=== PATIENT | male | born 1950 | race Caucasian/White ===

== ENCOUNTER 2020-07-16 17:50 | Inpatient (IN) ==
[2020-07-16] MEDS ORDERED: MORPHINE 4 MG/1 ML VIAL IV STA (18:47)
[2020-07-16] MEDS ORDERED: ONDANSETRON 4 MG/2 ML VIAL IV ONE (18:47)
[2020-07-16] MEDS ORDERED: SODIUM CHLORIDE 0.9% 1,000 ML IV STA (18:47)
[2020-07-16 19:04] LABS: Basophils # 0.1 10*3/uL (0.0-0.2); Basophils % 0.4 % (0.0-0.8); Eosinophils # 0.1 10*3/uL (0.0-0.87); Eosinophils % 0.4 % (0.00-10.9); Hematocrit 48.3 VOL% (42.0-52.0); Immature Granulocytes % 0.6 %; Immature Granulocytes Absolute 0.08 #; Lymphocytes # 1.1 10*3/uL (1.4-4.0); Lymphocytes % 7.8 % (21.2-54.2); Mean Corpuscular HGB Conc 35.2 GM/DL (32-36); Mean Corpuscular Volume 81.7 FL (87-102); Mean Platelet Volume 9.7 FL (9.6-12.0); Monocytes % 6.9 % (1.7-12.7); Neutrophils % 83.9 % (38.7-73.9); Platelet Count 188 T/CUMM (130-400); Red Blood Count 5.91 MC/CUMM (3.8-5.5); Red Cell Distribution Width 12.3 % (9.3-17.3); White Blood Count 13.8 T/CUMM (4-12)
[2020-07-16 19:17] LABS: Albumin 3.6 G/DL (3.4-5.0); Bilirubin,Total 2.1 MG/DL (0.2-1.0); Calcium 8.9 MG/DL (8.5-10.1); Osmolality,Calculated 268.1 MOS/KG (273-304); Total Protein 7.3 G/DL (6.4-8.3)
[2020-07-16 20:01] LABS: Apearance,Urine CLEAR (Clear); Bacteria,Urine Occasional /HPF (Few); Bilirubin,Urine Negative (Negative); Blood, Urine Negative (Negative); Glucose,Urine (UA) Negative (Negative); Ketones,Urine Negative (Negative); Mucus,Urine Occasional /LPF (Occasional); Nitrite,Urine Negative (Negative); Protein,Urine Negative; Urine Color Yellow (Yellow); Urine Specific Gravity 1.006 (1.001-1.035); Urine Urobilinogen < 2.0 EU/DL (0.2-1.0)
[2020-07-16] MEDS ORDERED: metroNIDAZOLE INJ 500 MG in PREMIX 1 EACH IV STA (20:17)
[2020-07-16] MEDS ORDERED: CIPROFLOXACIN INJ 400 MG in PREMIX 1 EACH IV STA (20:18)
[2020-07-16] MEDS ORDERED: GLUCAGON 1 MG VIAL IM PRN (20:56)
[2020-07-16] MEDS ORDERED: PROMETHAZINE 25 MG/1 ML VIAL IM PRN (20:56)
[2020-07-16] MEDS ORDERED: hydrALAZINE 20 MG/1 ML VIAL IV PRN (20:56)
[2020-07-16] MEDS ORDERED: NICOTINE 21 MG/24 HR PATCH TRANSDERM PRN (20:56)
[2020-07-16] MEDS ORDERED: DEXTROSE 50% 25 GM/50 ML VIAL IV PRN (20:56)
[2020-07-16] MEDS: SODIUM CHLORIDE 0.9% 1,000 ML IV SCH (22:29)
[2020-07-16] MEDS: MORPHINE 4 MG/1 ML VIAL IV PRN (22:29)
[2020-07-16] MEDS: ONDANSETRON 4 MG/2 ML VIAL IV PRN (22:29)
[2020-07-17] MEDS: MORPHINE 4 MG/1 ML VIAL IV PRN ×2 (04:12→20:49)
[2020-07-17] MEDS: ONDANSETRON 4 MG/2 ML VIAL IV PRN (04:13)
[2020-07-17] MEDS: SODIUM CHLORIDE 0.9% 1,000 ML IV SCH ×2 (06:17→16:16)
[2020-07-17 06:18] LABS: Basophils % 0.3 % (0.0-0.8); Eosinophils % 0.1 % (0.00-10.9); Hematocrit 44.7 VOL% (42.0-52.0); Hemoglobin 15.4 GM/DL (14.0-18.0); Immature Granulocytes % 0.9 %; Immature Granulocytes Absolute 0.12 #; Lymphocytes % 7.5 % (21.2-54.2); Mean Corpuscular HGB Conc 34.5 GM/DL (32-36); Mean Corpuscular Volume 83.7 FL (87-102); Mean Platelet Volume 9.8 FL (9.6-12.0); Monocytes % 8.5 % (1.7-12.7); Neutrophils % 82.7 % (38.7-73.9); Platelet Count 167 T/CUMM (130-400); Red Blood Count 5.34 MC/CUMM (3.8-5.5); Red Cell Distribution Width 12.6 % (9.3-17.3); White Blood Count 13.8 T/CUMM (4-12)
[2020-07-17 06:30] LABS: Bilirubin,Total 3.6 MG/DL (0.2-1.0); Calcium 8.1 MG/DL (8.5-10.1); Osmolality,Calculated 272.8 MOS/KG (273-304); Total Protein 6.3 G/DL (6.4-8.3)
[2020-07-17] MEDS: CIPROFLOXACIN INJ 400 MG in PREMIX 1 EACH IV SCH ×2 (08:55→20:50)
[2020-07-17] MEDS ORDERED: metroNIDAZOLE INJ 500 MG in PREMIX 1 EACH IV SCH (09:00)
[2020-07-17] MEDS ORDERED: TAMSULOSIN 0.4 MG CAPSULE PO SCH (09:00)
[2020-07-17] MEDS ORDERED: PHENYLEPH/MINERAL OIL/PETROLAT 57 GM TUBE TOP PRN (11:14)
[2020-07-17] MEDS: metroNIDAZOLE INJ 500 MG in PREMIX 1 EACH IV SCH (17:56)
[2020-07-17] MEDS: TAMSULOSIN 0.4 MG CAPSULE PO SCH (20:50)
[2020-07-18] MEDS: MORPHINE 4 MG/1 ML VIAL IV PRN ×3 (00:16→20:54)
[2020-07-18] MEDS: metroNIDAZOLE INJ 500 MG in PREMIX 1 EACH IV SCH ×3 (01:50→16:31)
[2020-07-18] MEDS: SODIUM CHLORIDE 0.9% 1,000 ML IV SCH ×3 (01:51→16:58)
[2020-07-18 05:30] LABS: Basophils % 0.4 % (0.0-0.8); Eosinophils # 0.1 10*3/uL (0.0-0.87); Eosinophils % 1.1 % (0.00-10.9); Hematocrit 41.9 VOL% (42.0-52.0); Hemoglobin 14.2 GM/DL (14.0-18.0); Immature Granulocytes % 1.1 %; Lymphocytes # 1.3 10*3/uL (1.4-4.0); Lymphocytes % 13.9 % (21.2-54.2); Mean Corpuscular HGB Conc 33.9 GM/DL (32-36); Mean Corpuscular Volume 83.8 FL (87-102); Mean Platelet Volume 9.9 FL (9.6-12.0); Monocytes % 8.3 % (1.7-12.7); Neutrophils % 75.2 % (38.7-73.9); Platelet Count 141 T/CUMM (130-400); Red Cell Distribution Width 12.6 % (9.3-17.3); White Blood Count 9.5 T/CUMM (4-12)
[2020-07-18 05:49] LABS: Albumin 2.5 G/DL (3.4-5.0); Bilirubin,Direct 0.36 MG/DL (0.0-0.20); Bilirubin,Total 2.7 MG/DL (0.2-1.0); Calcium 7.9 MG/DL (8.5-10.1); Osmolality,Calculated 274.7 MOS/KG (273-304); Total Protein 5.8 G/DL (6.4-8.3)
[2020-07-18] MEDS: CIPROFLOXACIN INJ 400 MG in PREMIX 1 EACH IV SCH ×2 (08:31→20:55)
[2020-07-18] MEDS: TAMSULOSIN 0.4 MG CAPSULE PO SCH ×2 (08:31→20:56)
[2020-07-18] MEDS: FINASTERIDE 5 MG TABLET PO SCH (08:31)
[2020-07-18] MEDS: POLYETHYLENE GLYCOL POWDER 17 GM PACK PO SCH (12:35)
[2020-07-18] MEDS: HYDROCORTISONE 25 MG SUPP RECTAL SCH ×2 (14:25→20:57)
[2020-07-18] MEDS: DICYCLOMINE 10 MG CAPSULE PO SCH (20:56)
[2020-07-19] MEDS: SODIUM CHLORIDE 0.9% 1,000 ML IV SCH ×3 (00:37→20:32)
[2020-07-19] MEDS: metroNIDAZOLE INJ 500 MG in PREMIX 1 EACH IV SCH ×3 (00:37→16:32)
[2020-07-19] MEDS: MORPHINE 4 MG/1 ML VIAL IV PRN ×2 (00:42→04:25)
[2020-07-19 06:02] LABS: Basophils % 0.5 % (0.0-0.8); Eosinophils # 0.1 10*3/uL (0.0-0.87); Eosinophils % 1.4 % (0.00-10.9); Hematocrit 41.5 VOL% (42.0-52.0); Immature Granulocytes % 1.3 %; Lymphocytes % 12.5 % (21.2-54.2); Mean Corpuscular HGB Conc 33.7 GM/DL (32-36); Mean Platelet Volume 10.1 FL (9.6-12.0); Monocytes % 7.4 % (1.7-12.7); Neutrophils % 76.9 % (38.7-73.9); Platelet Count 146 T/CUMM (130-400); Red Blood Count 4.94 MC/CUMM (3.8-5.5); Red Cell Distribution Width 12.5 % (9.3-17.3); White Blood Count 7.6 T/CUMM (4-12)
[2020-07-19 06:26] LABS: Albumin 2.4 G/DL (3.4-5.0); Bilirubin,Direct 0.32 MG/DL (0.0-0.20); Bilirubin,Total 1.8 MG/DL (0.2-1.0); Calcium 8.4 MG/DL (8.5-10.1); Osmolality,Calculated 276.5 MOS/KG (273-304)
[2020-07-19] MEDS: TAMSULOSIN 0.4 MG CAPSULE PO SCH ×2 (08:59→20:46)
[2020-07-19] MEDS: POLYETHYLENE GLYCOL POWDER 17 GM PACK PO SCH (08:59)
[2020-07-19] MEDS: DICYCLOMINE 10 MG CAPSULE PO SCH (08:59)
[2020-07-19] MEDS: FINASTERIDE 5 MG TABLET PO SCH (08:59)
[2020-07-19] MEDS: CIPROFLOXACIN INJ 400 MG in PREMIX 1 EACH IV SCH ×2 (09:00→20:46)
[2020-07-19] MEDS: HYDROCORTISONE 25 MG SUPP RECTAL SCH ×3 (10:10→20:46)
[2020-07-19] MEDS ORDERED: DICYCLOMINE 10 MG CAPSULE PO PRN (10:45)
[2020-07-20] MEDS: metroNIDAZOLE INJ 500 MG in PREMIX 1 EACH IV SCH ×3 (01:26→17:08)
[2020-07-20 04:56] LABS: Basophils % 0.6 % (0.0-0.8); Eosinophils # 0.1 10*3/uL (0.0-0.87); Eosinophils % 1.9 % (0.00-10.9); Hematocrit 43.6 VOL% (42.0-52.0); Hemoglobin 14.7 GM/DL (14.0-18.0); Immature Granulocytes Absolute 0.07 #; Lymphocytes # 1.1 10*3/uL (1.4-4.0); Lymphocytes % 16.4 % (21.2-54.2); Mean Corpuscular HGB Conc 33.7 GM/DL (32-36); Mean Corpuscular Volume 85.5 FL (87-102); Mean Platelet Volume 10.2 FL (9.6-12.0); Neutrophils % 72.1 % (38.7-73.9); Platelet Count 177 T/CUMM (130-400); Red Cell Distribution Width 12.5 % (9.3-17.3); White Blood Count 6.9 T/CUMM (4-12)
[2020-07-20 05:44] LABS: Albumin 2.8 G/DL (3.4-5.0); Bilirubin,Direct 0.24 MG/DL (0.0-0.20); Bilirubin,Total 2.1 MG/DL (0.2-1.0); Calcium 8.6 MG/DL (8.5-10.1); Osmolality,Calculated 278.4 MOS/KG (273-304); Total Protein 6.4 G/DL (6.4-8.3)
[2020-07-20] MEDS: SODIUM CHLORIDE 0.9% 1,000 ML IV SCH ×2 (06:33→10:43)
[2020-07-20] MEDS: CIPROFLOXACIN INJ 400 MG in PREMIX 1 EACH IV SCH ×2 (09:14→21:24)
[2020-07-20] MEDS: TAMSULOSIN 0.4 MG CAPSULE PO SCH ×2 (09:15→21:16)
[2020-07-20] MEDS: FINASTERIDE 5 MG TABLET PO SCH (09:15)
[2020-07-20] MEDS: POLYETHYLENE GLYCOL POWDER 17 GM PACK PO SCH (09:15)
[2020-07-20] MEDS: HYDROCORTISONE 25 MG SUPP RECTAL SCH ×3 (09:16→21:16)
[2020-07-20] MEDS ORDERED: MAGNESIUM CITRATE 300 ML BOTTLE PO ONE (11:38)
[2020-07-20] MEDS: MORPHINE 4 MG/1 ML VIAL IV PRN (19:13)
[2020-07-21] MEDS: metroNIDAZOLE INJ 500 MG in PREMIX 1 EACH IV SCH ×2 (00:39→10:51)
[2020-07-21] MEDS: MORPHINE 4 MG/1 ML VIAL IV PRN (01:49)
[2020-07-21 05:55] LABS: Basophils % 0.6 % (0.0-0.8); Eosinophils # 0.1 10*3/uL (0.0-0.87); Eosinophils % 1.4 % (0.00-10.9); Hematocrit 44.4 VOL% (42.0-52.0); Hemoglobin 15.5 GM/DL (14.0-18.0); Immature Granulocytes Absolute 0.07 #; Lymphocytes # 1.1 10*3/uL (1.4-4.0); Lymphocytes % 15.4 % (21.2-54.2); Mean Corpuscular HGB Conc 34.9 GM/DL (32-36); Mean Corpuscular Volume 82.4 FL (87-102); Monocytes % 8.7 % (1.7-12.7); Neutrophils % 72.9 % (38.7-73.9); Platelet Count 203 T/CUMM (130-400); Red Blood Count 5.39 MC/CUMM (3.8-5.5); Red Cell Distribution Width 12.4 % (9.3-17.3); White Blood Count 6.9 T/CUMM (4-12)
[2020-07-21 06:27] LABS: Bilirubin,Direct 0.23 MG/DL (0.0-0.20); Bilirubin,Total 1.3 MG/DL (0.2-1.0); Calcium 8.5 MG/DL (8.5-10.1); Osmolality,Calculated 269.1 MOS/KG (273-304); Total Protein 6.8 G/DL (6.4-8.3)
[2020-07-21 07:43] VITALS: BP 120/58
[2020-07-21] MEDS: FINASTERIDE 5 MG TABLET PO SCH (09:38)
[2020-07-21] MEDS: TAMSULOSIN 0.4 MG CAPSULE PO SCH (09:38)
[2020-07-21] MEDS: HYDROCORTISONE 25 MG SUPP RECTAL SCH (09:38)
[2020-07-21] MEDS: CIPROFLOXACIN INJ 400 MG in PREMIX 1 EACH IV SCH (09:39)
[2020-07-21] MEDS: POLYETHYLENE GLYCOL POWDER 17 GM PACK PO SCH (09:39)
== END 2020-07-21 13:50 | disposition home or self-care (01) | DRG 392 ==
LOC: N.EDINP 17:50 → N.ED 17:50 → SUATTDRO 20:56 → N.TELEN 21:18
PROVIDERS: ADMIT Hospitalist; ATTEND Internal Medicine